=== PATIENT | female | born 1985 | race Caucasian/White ===

== ENCOUNTER 2017-05-26 13:59 | Inpatient (IN) | payer BC ==
[2017-05-26] MEDS ORDERED: NS 0.9% 1000 ML*IV.FLUID IV ONE (15:32)
[2017-05-26] MEDS ORDERED: Clindamycin 900 MG IVPREMIX(* 900 MG/50 ML SDV IV ONE (15:33)
[2017-05-26] MEDS ORDERED: Gentamicin ADULT (*) 40 MG/ML VIAL IVPB ONE (15:34)
[2017-05-26] MEDS ORDERED: Ondansetron INJ* 2 MG/ML VIAL IV ONE (15:34)
[2017-05-26] MEDS ORDERED: Ketorolac INJ* 30 MG/ML 1 ML VIAL IV ONE (15:34)
[2017-05-26] MEDS ORDERED: Acetaminophen TAB* 325 MG PO ONE (15:53)
[2017-05-26 16:08] LABS: ABS Basophils 0 10^3/ul (0-0.2); ABS Eosinophils 0 10^3/ul (0-0.6); ABS Lymphocytes 1.5 10^3/ul (1.0-4.8); ABS Monocytes 0.9 10^3/ul (0-0.8); ABS Neutrophils 9.4 10^3/ul (1.5-7.7); ABS Nucleated RBC 0 10^3/ul; Eosinophil % 0.3 % (0-6); Hematocrit 39 % (35-47); Hemoglobin 13.4 g/dl (12.0-16.0); Lymphocyte % 13.1 % (25-47); Mean Corpuscular HGB Conc 34 g/dl (31-36); Mean Corpuscular Hemoglobin 29 pg (27-31); Mean Corpuscular Volume 86 fL (80-97); Mean Platelet Volume 7 um3 (7.4-10.4); Nucleated Red Blood Cells % 0.1; Platelet Count 238 10^3/ul (150-450); Red Blood Count 4.59 10^6/ul (4.0-5.4); Red Cell Distribution Width 13 % (10.5-15); White Blood Count 11.8 10^3/ul (3.5-10.8)
[2017-05-26 16:18] LABS: INR 1.05 (0.77-1.02)
[2017-05-26 16:30] LABS: EGFR Non-African American 74.5 (>60)
--- NOTE | 2017-05-26 16:43 | RAD ---
INDICATION: RIGHT lower quadrant, flank, pelvic pain. Fever. 3 weeks . COMPARISON: November 10, 2015 pelvic ultrasound. TECHNIQUE: Multidetector CT images were obtained from the lung bases to the ischial tuberosities. Evaluation of the viscera is limited without IV contrast. Multiplanar reformation. REPORT: Unremarkable visualized inferior thorax. Unremarkable unenhanced liver, gallbladder, pancreas, spleen. Negative for CT abnormality of the upper GI or small bowel. Medially extending appendix is top normal in size measuring up to 6 mm diameter is without compelling inflammatory change. The appendix is most conspicuous on coronal reformatted images 35-38. Unremarkable colon. Trace free fluid at the pelvis. Negative for free air or hernias. Normal adrenal glands. Negative for urolithiasis or hydronephrosis. Unremarkable urinary bladder. Enlarged uterus with approximate 6 cm RIGHT dorsal uterine body fibroid increased from approximate 5 cm on the November 10, 2015 ultrasound. Unremarkable adnexal regions. Negative for lymphadenopathy. Normal diameter abdominal aorta and iliac arteries. Physiologic partial distention of the IVC. Negative for suspicious osseous lesions. IMPRESSION: 1. Top normal appendix diameter without compelling inflammatory change. Correlate with clinical assessment. 2. Negative for obstructive uropathy. 3. Enlarged uterus with approximate 6 cm RIGHT dorsal uterine body fibroid increased from approximate 5 cm on the November 10, 2015 ultrasound.
[2017-05-26] MEDS ORDERED: Gentamicin ADULT (*) 80 MG in NS 0.9% 100 ML* 100 ML IVPB ONE (17:00)
[2017-05-26 18:19] LABS: Urine Appearance Cloudy; Urine Blood 1+ (Negative); Urine Color Yellow; Urine Ketones Negative (Negative); Urine Protein Negative (Negative); Urine Specific Gravity 1.008 (1.010-1.030); Urine Urobilinogen Negative (Negative)
--- NOTE | 2017-05-26 18:21 | RAD ---
Indication: Generalized abdominal pain and fever 3 weeks . Known uterine fibroid. Comparison: Abdomen CT of the same date and November 10, 2015 ultrasound. Technique: Transabdominal pelvic ultrasound. Report: 11.9 x 5.2 x 8.1 cm anteverted uterus with 2.5 mm endometrium. Negative for fluid or findings of retained products of conception. Posterior midline to RIGHT para midline uterine body myometrial to subserosal fibroid measuring up to 6.2 x 4.4 x 5.1 cm enlarged from 4.3 x 4.0 x 5.2 cm on the November 10, 2015 exam. 4.1 x 3.1 x 1.8 cm RIGHT ovary with documented vascular flow is remarkable for small follicles only. 3.2 x 2.3 x 1.9 cm LEFT ovary with documented vascular flow is remarkable for small follicles only. No free pelvic fluid evident. IMPRESSION: 1. No evidence for retained products of conception. 2. Interval enlargement of solitary uterine fibroid measuring up to 6.2 x 4.4 x 5.1 cm compared with 4.3 x 4.0 x 5.2 cm on the 2015 exam.
[2017-05-26] MEDS ORDERED: Gentamicin ADULT per pharmacy 1 NOTE MISC FOLLOW UP PRN (19:48)
[2017-05-26] MEDS ORDERED: Ondansetron INJ* 2 MG/ML VIAL IV PRN (19:51)
[2017-05-26] MEDS ORDERED: Clindamycin 900 MG IVPREMIX(* 900 MG/50 ML SDV IV SCH ×2 (20:00→22:00)
--- NOTE | 2017-05-26 20:07 | ED ---
Mingo Arthur Thomas, scribed for Clint Jain MD on 05/26/17 at 1651 . Abdominal Pain/Female - HPI Summary HPI Summary: The patient is a 31 year old female who is 3 weeks post-. Four days ago, the patient began to develop lower abdominal and pelvic pain. The pain is intermittent and is described as dull. The pain radiates to her right flank. Today, the patient woke up with nausea, dizziness, headache, and a fever at 102. She notes a stinging sensation when she urinates. She has been taking Motrin and Tylenol. She denies vaginal discharge. She stopped bleeding about 1.5 weeks ago. - History of Current Complaint Chief Complaint: EDFlankPain Stated Complaint: FEVER,RT FLANK PAIN Time Seen by Provider: 05/26/17 14:56 Hx Obtained From: Patient Onset/Duration: Lasting Days - 4, Still Present Timing: Intermittent Episode Lasting Severity Currently: Moderate Pain Intensity: 5 Pain Scale Used: 0-10 Numeric Location: Other - Lower abd, pelvic Radiates to: Flank - right Character: Dull Aggravating Factor(s): Nothing Alleviating Factor(s): Nothing Associated Signs and Symptoms: Positive: Other: - Abd pain, pelvis, nausea, dizziness, headache, fever, dysuria; NEGATIVE: vaginal discharge Allergies/Adverse Reactions: Allergies Allergy/AdvReac Type Severity Reaction Status Date / Time hydrocodone [From Vicodin] Allergy Anaphylatic Verified 05/26/17 15:11 Shock prochlorperazine Allergy Anaphylatic Verified 05/26/17 15:11 [From Compazine] Shock Home Medications: Home Medications PARoxetine HCL TAB* [Paxil TAB*] 20 mg PO BID 05/26/17 [History Confirmed ] Pnv No.95/Ferrous Fum/Folic AC [ Vitamin & Minera 28-0.8 mg] 1 tab PO DAILY 05/26/17 [History Confirmed 05/26/17] PMH/Surg Hx/FS Hx/Imm Hx Sensory History: Denies: Hx Legally Blind EENT History: Denies: Hx Deafness Infectious Disease History: No Infectious Disease History: Denies: Traveled Outside the [place] in Last 30 Days - Family History Known Family History: Negative: Respiratory Disease - Social History Alcohol Use: None Substance Use Type: Reports: None Smoking Status (MU): Never Smoked Tobacco Review of Systems Positive: Fever Positive: Abdominal Pain, Nausea Positive: dysuria, other - Pelvic pain. Negative: discharge Neurological: Other - Dizziness Positive: Headache All Other Systems Reviewed And Are Negative: Yes Physical Exam - Summary Physical Exam Summary: General: mildly to moderate ill-appearing, no pain distress Skin: warm, color reflects adequate perfusion, dry Head: normal Eyes: EOMI, KATHY ENT: normal Neck: supple, nontender Respiratory: CTA, breath sounds present Cardiovascular: tachycardia, regular rhythm Abdomen: Soft. She is tender to the suprapubic region, RLQ, and epigastrium. She is most tender to the epigastrium. There is no flank tenderness. Bowel: present Musculoskeletal: normal, strength/ROM intact Neurological: normal, sensory/motor intact, A&O x3 Psychological: affect/mood appropriate Triage Information Reviewed: Yes Vital Signs On Initial Exam: Initial Vitals Temp Pulse Resp BP Pulse Ox 104.5 F 124 24 127/90 100 05/26/17 15:11 05/26/17 15:11 05/26/17 15:11 05/26/17 15:11 05/26/17 15:11 Vital Signs Reviewed: Yes Diagnostics - Vital Signs Vital Signs Temp Pulse Resp BP Pulse Ox 05/26/17 16:25 96 05/26/17 16:00 116 98 05/26/17 15:58 110 97 05/26/17 15:11 104.5 F 124 24 127/90 100 - Laboratory Lab Results: Lab Results 05/26/17 05/26/17 05/26/17 Range/Units 15:46 15:46 15:46 WBC 11.8 H (3.5-10.8) 10^3/ul RBC 4.59 (4.0-5.4) 10^6/ul Hgb 13.4 (12.0-16.0) g/dl Hct 39 (35-47) % MCV 86 (80-97) fL MCH 29 (27-31) pg MCHC 34 (31-36) g/dl RDW 13 (10.5-15) % Plt Count 238 (150-450) 10^3/ul MPV 7 L (7.4-10.4) um3 Neut % (Auto) 79.2 (38-83) % Lymph % (Auto) 13.1 L (25-47) % [place] % (Auto) 7.3 H (0-7) % Eos % (Auto) 0.3 (0-6) % Baso % (Auto) 0.1 (0-2) % Absolute Neuts (auto) 9.4 H (1.5-7.7) 10^3/ul Absolute Lymphs (auto) 1.5 (1.0-4.8) 10^3/ul Absolute Monos (auto) 0.9 H (0-0.8) 10^3/ul Absolute Eos (auto) 0 (0-0.6) 10^3/ul Absolute Basos (auto) 0 (0-0.2) 10^3/ul Absolute Nucleated RBC 0 10^3/ul Nucleated RBC % 0.1 INR (Anticoag Therapy) 1.05 H (0.77-1.02) APTT 32.5 (26.0-36.3) seconds Sodium 137 (133-145) mmol/L Potassium 3.8 (3.5-5.0) mmol/L Chloride 101 (101-111) mmol/L Carbon Dioxide 28 (22-32) mmol/L Anion Gap 8 (2-11) mmol/L BUN 11 (6-24) mg/dL Creatinine 0.88 (0.51-0.95) mg/dL Est GFR ( Amer) 95.8 (>60) Est GFR (Non-Af Amer) 74.5 (>60) BUN/Creatinine Ratio 12.5 (8-20) Glucose 89 (70-100) mg/dL Lactic Acid (0.5-2.0) mmol/L Calcium 9.6 (8.6-10.3) mg/dL Total Bilirubin 0.40 (0.2-1.0) mg/dL AST 14 (13-39) U/L ALT 13 (7-52) U/L Alkaline Phosphatase 97 (34-104) U/L Troponin I 0.00 (<0.04) ng/mL C-Reactive Protein 65.51 H (< 5.00) mg/L Total Protein 7.4 (6.4-8.9) g/dL Albumin 4.3 (3.2-5.2) g/dL Globulin 3.1 (2-4) g/dL Albumin/Globulin Ratio 1.4 (1-3) Influenza A (Rapid) (Negative) Influenza B (Rapid) (Negative) 05/26/17 05/26/17 Range/Units 15:46 16:02 WBC (3.5-10.8) 10^3/ul RBC (4.0-5.4) 10^6/ul Hgb (12.0-16.0) g/dl Hct (35-47) % MCV (80-97) fL MCH (27-31) pg MCHC (31-36) g/dl RDW (10.5-15) % Plt Count (150-450) 10^3/ul MPV (7.4-10.4) um3 Neut % (Auto) (38-83) % Lymph % (Auto) (25-47) % [place] % (Auto) (0-7) % Eos % (Auto) (0-6) % Baso % (Auto) (0-2) % Absolute Neuts (auto) (1.5-7.7) 10^3/ul Absolute Lymphs (auto) (1.0-4.8) 10^3/ul Absolute Monos (auto) (0-0.8) 10^3/ul Absolute Eos (auto) (0-0.6) 10^3/ul Absolute Basos (auto) (0-0.2) 10^3/ul Absolute Nucleated RBC 10^3/ul Nucleated RBC % INR (Anticoag Therapy) (0.77-1.02) APTT (26.0-36.3) seconds Sodium (133-145) mmol/L Potassium (3.5-5.0) mmol/L Chloride (101-111) mmol/L Carbon Dioxide (22-32) mmol/L Anion Gap (2-11) mmol/L BUN (6-24) mg/dL Creatinine (0.51-0.95) mg/dL Est GFR ( Amer) (>60) Est GFR (Non-Af Amer) (>60) BUN/Creatinine Ratio (8-20) Glucose (70-100) mg/dL Lactic Acid 1.6 (0.5-2.0) mmol/L Calcium (8.6-10.3) mg/dL Total Bilirubin (0.2-1.0) mg/dL AST (13-39) U/L ALT (7-52) U/L Alkaline Phosphatase (34-104) U/L Troponin I (<0.04) ng/mL C-Reactive Protein (< 5.00) mg/L Total Protein (6.4-8.9) g/dL Albumin (3.2-5.2) g/dL Globulin (2-4) g/dL Albumin/Globulin Ratio (1-3) Influenza A (Rapid) Negative (Negative) Influenza B (Rapid) Negative (Negative) Result Diagrams: 05/26/17 15:46 05/26/17 15:46 Lab Statement: Any lab studies that have been ordered have been reviewed, and results considered in the medical decision making process. - CT CT Abd/Pel CT Interpretation: No Acute Changes - 1. Top normal appendix diameter without compelling inflammatory change. Correlate with clinical assessment. 2. Negative for obstructive uropathy. 3. Enlarged uterus with approximate 6 cm RIGHT dorsal uterine body fibroid increased from approximate 5 cm on the November 10, [address] Jain has reviewed this report. CT Interpretation Completed By: Radiologist - Additional Comments Diagnostic Additional Comments: Ultrasound Pelvis. Interpreted by radiologist. IMPRESSION: 1. No evidence for retained products of conception. 2. Interval enlargement of solitary uterine fibroid measuring up to 6.2 x 4.4 x 5.1 cm compared with 4.3 x 4.0 x 5.2 cm on the [address] Jain has reviewed this report. Abdominal Pain Fem Course/Dx - Course Course Of Treatment: Medications reviewed. Allergies noted. DR VILLASEÑOR SAW PATIENT IN ED. ADMIT FINAL TESTER. NO CRITICAL CARE TIME. - Diagnoses Provider Diagnoses: Endometritis following delivery - Provider Notifications Discussed Care Of Patient With: Michoacano Villaseñor Time Discussed With Above Provider: 19:21 Instructed by Provider To: Admit As Inpatient Discharge - Discharge Plan Condition: Stable Disposition: ADMITTED TO [facility] Referrals: Radha Serrano MD [Primary Care Provider] - The documentation as recorded by the Mingo kauffman Thomas accurately reflects the service I personally performed and the decisions made by , Clint Jain MD.
[2017-05-26] MEDS: Ibuprofen TAB* 600 MG PO PRN (21:03)
[2017-05-26] MEDS: Clindamycin 900 MG IVPREMIX(* 900 MG/50 ML SDV IV SCH (23:23)
[2017-05-27] MEDS: Acetaminophen TAB* 325 MG PO PRN ×3 (00:57→20:16)
[2017-05-27] MEDS: Gentamicin ADULT (*) 120 MG in NS 0.9% 100 ML* 100 ML IVPB SCH ×3 (04:19→20:30)
[2017-05-27] MEDS: Clindamycin 900 MG IVPREMIX(* 900 MG/50 ML SDV IV SCH ×2 (07:38→16:05)
[2017-05-27] MEDS: Ibuprofen TAB* 600 MG PO PRN ×2 (11:44→19:02)
[2017-05-27] MEDS ORDERED: Ondansetron TAB* 4 MG PO PRN (11:50)
[2017-05-27] MEDS: PARoxetine HCL TAB* 20 MG PO SCH ×2 (12:31→20:17)
[2017-05-27 12:34] LABS: ABS Basophils 0 10^3/ul (0-0.2); ABS Eosinophils 0 10^3/ul (0-0.6); ABS Lymphocytes 1.3 10^3/ul (1.0-4.8); ABS Monocytes 1.1 10^3/ul (0-0.8); ABS Neutrophils 11.2 10^3/ul (1.5-7.7); ABS Nucleated RBC 0 10^3/ul; Eosinophil % 0.1 % (0-6); Hematocrit 36 % (35-47); Hemoglobin 12.2 g/dl (12.0-16.0); Lymphocyte % 9.5 % (25-47); Mean Corpuscular HGB Conc 34 g/dl (31-36); Mean Corpuscular Hemoglobin 29 pg (27-31); Mean Corpuscular Volume 87 fL (80-97); Mean Platelet Volume 7 um3 (7.4-10.4); Nucleated Red Blood Cells % 0; Platelet Count 194 10^3/ul (150-450); Red Blood Count 4.15 10^6/ul (4.0-5.4); Red Cell Distribution Width 13 % (10.5-15); White Blood Count 13.6 10^3/ul (3.5-10.8)
--- NOTE | 2017-05-27 13:12 | PN ---
Medicine Progress Note - Date of Service Date of Service: 05/27/17 - Subjective Subjective: Pt notes fevers persist - Objective Objective: Vital Signs 05/26/17 05/26/17 05/26/17 20:13 20:30 20:53 Temperature 98.4 F Pulse Rate 86 87 85 Respiratory 18 Rate Blood Pressure 97/69 94/68 112/66 (mmHg) O2 Sat by Pulse 98 98 100 Oximetry 05/26/17 05/26/17 05/26/17 21:00 21:01 21:11 Temperature 99.7 F 99.4 F Pulse Rate 89 88 Respiratory 18 Rate Blood Pressure 99/60 97/69 (mmHg) O2 Sat by Pulse 99 98 Oximetry 05/26/17 05/26/17 05/26/17 21:31 22:54 23:41 Temperature 98.4 F 100.1 F Pulse Rate 85 91 Respiratory 18 17 18 Rate Blood Pressure 112/66 93/47 (mmHg) O2 Sat by Pulse 100 97 Oximetry 05/27/17 05/27/17 05/27/17 00:54 03:03 06:17 Temperature 101.2 F 100.2 F 98.3 F Pulse Rate 101 Respiratory 22 Rate Blood Pressure 104/55 (mmHg) O2 Sat by Pulse 96 Oximetry 05/27/17 05/27/17 05/27/17 07:30 07:55 07:56 Temperature 101.5 F 101.7 F Pulse Rate 98 Respiratory 16 16 Rate Blood Pressure 98/67 (mmHg) O2 Sat by Pulse 99 99 Oximetry 05/27/17 05/27/17 10:10 11:11 Temperature 100.5 F 102.5 F Pulse Rate 110 Respiratory 16 Rate Blood Pressure 122/73 (mmHg) O2 Sat by Pulse Oximetry Current Medications Acetaminophen (Tylenol Tab*) 975 mg PO Q6H PRN PRN Reason: FEVER Last Admin: 05/27/17 07:37 Dose: 975 mg Clindamycin HCl/Dextrose (Cleocin 900 Mg Ivpremix (*) Sdv) 900 mg in 50 mls @ 100 mls/hr IV 0000,0800,1600 [facility] Last Admin: 05/27/17 07:38 Dose: 100 mls/hr Gentamicin Sulfate 120 mg/ (Sodium Chloride) 103 mls @ 206 mls/hr IVPB Q8H [facility] Last Admin: 05/27/17 12:51 Dose: 206 mls/hr Ampicillin Sodium 2 gm/ Sodium (Chloride) 100 mls @ 200 mls/hr IVPB Q6H [facility] Ibuprofen (Motrin Tab*) 600 mg PO Q6H PRN PRN Reason: PAIN Last Admin: 05/27/17 11:44 Dose: 600 mg Ondansetron HCl (Zofran Tab*) 8 mg PO Q6H PRN PRN Reason: NAUSEA Paroxetine HCl (Paxil Tab*) 20 mg PO BID [facility]RA Last Admin: 05/27/17 12:31 Dose: 20 mg Pharmacy Consult (Gentamicin Adult Per Pharmacy) 1 note FOLLOW UP .GENT PER PHARMACY PRN PRN Reason: PER PROTOCOL Stop: 06/09/17 19:49 Pharmacy Profile Note (Gentamicin Trough Level) 1 note FOLLOW UP 1930 ONE Stop: 05/27/17 19:31 Pharmacy Profile Note (Gentamicin Peak Level*) 1 note FOLLOW UP 2100 ONE Stop: 05/27/17 21:01 Intake & Output 05/25/17 05/26/17 05/27/17 05/28/17 06:59 06:59 06:59 06:59 Intake Total 743 278 Output Total 0 1050 Balance 743 -772 Weight 153 lb Intake: IV Fluids 103 IVPB 143 55 ABX - CLINDAMYCIN 43 ABX - GENTAMYCIN 100 Oral 600 120 Output: Urine 0 1050 ADLs: Meal Record Start: 05/26/17 21: 04 Freq: Status: Active Protocol: Document 05/27/17 10:30 [id number] (Rec: 05/27/17 10:30 [id number]) Intake and Output Start: 05/26/17 21: 04 Freq: DAILY@0600,1400,2200 Status: Active Protocol: Document 05/27/17 06:00 [id number] (Rec: 05/27/17 06:04 [id number] [id number]) Document 05/27/17 06:15 [id number] (Rec: 05/27/17 06:15 [id number] [id number]) Document 05/27/17 07:03 [id number] (Rec: 05/27/17 09:03 [id number] [id number]) Document 05/27/17 11:15 [id number] (Rec: 05/27/17 11:48 [id number] [id number]) Last Finger Stick Glucose Documented by Nursing: General: resting with ice pack on head Uterus: mildly tender to left Perineum:intact no foul drainage Abdomen: no rebound no guarding no HSM Back: no CVA tenderness Extremities: Non tender no edema - Labs Labs: Laboratory Results - last 24 hr 05/27/17 12:15 WBC 13.6 H RBC 4.15 Hgb 12.2 Hct 36 MCV 87 MCH 29 MCHC 34 RDW 13 Plt Count 194 MPV 7 L Neut % (Auto) 82.2 Lymph % (Auto) 9.5 L [place] % (Auto) 8.1 H Eos % (Auto) 0.1 Baso % (Auto) 0.1 Absolute Neuts (auto) 11.2 H Absolute Lymphs (auto) 1.3 Absolute Monos (auto) 1.1 H Absolute Eos (auto) 0 Absolute Basos (auto) 0 Absolute Nucleated RBC 0 Nucleated RBC % 0 - Assessment Assessment: ORLANDO ALEJANDRO is a 31 year old F. Patient's diagnosis is ENDOMETRITIS. Will repeat blood cultures in light of new spike and will broaden coverage with ampicillin gentamicin and clindamycin Repeat CBC done and agree with assessment of endometritis - Plan Plan: Repeat blood culture add on Ampicillin for broader coverage. No evidence of retained POC on pelvic US.
[2017-05-27] MEDS: Ampicillin IV* 2 GM in NS 0.9% 100 ML* 100 ML IVPB SCH ×3 (13:50→23:51)
[2017-05-27] MEDS ORDERED: Gentamicin Trough Level 1 NOTE MISC FOLLOW UP ONE (19:30)
[2017-05-27] MEDS ORDERED: Gentamicin PEAK LEVEL* 1 NOTE MISC FOLLOW UP ONE (21:00)
[2017-05-28] MEDS: Clindamycin 900 MG IVPREMIX(* 900 MG/50 ML SDV IV SCH ×3 (00:32→15:25)
[2017-05-28] MEDS ORDERED: Gentamicin ADULT (*) 80 MG in NS 0.9% 100 ML* 100 ML IVPB SCH ×2 (01:53→04:00)
[2017-05-28] MEDS: Ampicillin IV* 2 GM in NS 0.9% 100 ML* 100 ML IVPB SCH ×4 (05:17→23:20)
[2017-05-28 05:44] LABS: ABS Basophils 0 10^3/ul (0-0.2); ABS Eosinophils 0.1 10^3/ul (0-0.6); ABS Lymphocytes 2.3 10^3/ul (1.0-4.8); ABS Monocytes 1.2 10^3/ul (0-0.8); ABS Neutrophils 8.2 10^3/ul (1.5-7.7); ABS Nucleated RBC 0 10^3/ul; Hematocrit 34 % (35-47); Hemoglobin 11.6 g/dl (12.0-16.0); Lymphocyte % 19.3 % (25-47); Mean Corpuscular HGB Conc 34 g/dl (31-36); Mean Corpuscular Hemoglobin 30 pg (27-31); Mean Corpuscular Volume 87 fL (80-97); Mean Platelet Volume 7 um3 (7.4-10.4); Nucleated Red Blood Cells % 0; Platelet Count 176 10^3/ul (150-450); Red Blood Count 3.89 10^6/ul (4.0-5.4); Red Cell Distribution Width 13 % (10.5-15); White Blood Count 11.8 10^3/ul (3.5-10.8)
[2017-05-28] MEDS: PARoxetine HCL TAB* 20 MG PO SCH ×2 (08:57→21:07)
[2017-05-28] MEDS: Ibuprofen TAB* 600 MG PO PRN ×2 (08:57→19:32)
[2017-05-28] MEDS ORDERED: Gentamicin Trough Level 1 NOTE MISC FOLLOW UP ONE (11:30)
--- NOTE | 2017-05-28 11:54 | PN ---
Progress Note - Progress Note Date of Service: 05/28/17 SOAP: Subjective: Pt is HD#3 for apparent endometritis, delivered nearly 4 wks ago. Had very high temp before she presented (104+). Initially started on Gent/Clinda, but with 102 temp yesterday AM, Amp was added. Pt had a temp of 101.2 at 1928 last night, but none since. Overall, pt reports she is feeling better. When she has fever, she gets very cold and shaky. Motrin helps. Pt recalls that about a week ago, she passed an approx quarter-sized piece of tissue. She has been having some symptoms of pain and low grade fever for about a week before she came in. Objective: Vital Signs: Temp Pulse Resp BP Pulse Ox 99.0 F 80 18 99/55 98 05/28/17 07:33 05/28/17 07:29 05/28/17 08:00 05/28/17 07:29 05/28/17 07:29 Gen: NAD, comfortable Abd soft, minimal TTP, no rebound/guarding Laboratory Last Values WBC 11.8 10^3/ul (3.5-10.8) H 05/28/17 05:16 RBC 3.89 10^6/ul (4.0-5.4) L 05/28/17 05:16 Hgb 11.6 g/dl (12.0-16.0) L 05/28/17 05:16 Hct 34 % (35-47) L 05/28/17 05:16 MCV 87 fL (80-97) 05/28/17 05:16 MCH 30 pg (27-31) 05/28/17 05:16 MCHC 34 g/dl (31-36) 05/28/17 05:16 RDW 13 % (10.5-15) 05/28/17 05:16 Plt Count 176 10^3/ul (150-450) 05/28/17 05:16 MPV 7 um3 (7.4-10.4) L 05/28/17 05:16 Neut % (Auto) 69.8 % (38-83) 05/28/17 05:16 Lymph % (Auto) 19.3 % (25-47) L 05/28/17 05:16 [place] % (Auto) 9.8 % (0-7) H 05/28/17 05:16 Eos % (Auto) 1.0 % (0-6) 05/28/17 05:16 Baso % (Auto) 0.1 % (0-2) 05/28/17 05:16 Absolute Neuts (auto) 8.2 10^3/ul (1.5-7.7) H 05/28/17 05:16 Absolute Lymphs (auto) 2.3 10^3/ul (1.0-4.8) 05/28/17 05:16 Absolute Monos (auto) 1.2 10^3/ul (0-0.8) H 05/28/17 05:16 Absolute Eos (auto) 0.1 10^3/ul (0-0.6) 05/28/17 05:16 Absolute Basos (auto) 0 10^3/ul (0-0.2) 05/28/17 05:16 Absolute Nucleated RBC 0 10^3/ul 05/28/17 05:16 Nucleated RBC % 0 05/28/17 05:16 INR (Anticoag Therapy) 1.05 (0.77-1.02) H 05/26/17 15:46 APTT 32.5 seconds (26.0-36.3) 05/26/17 15:46 Sodium 139 mmol/L (133-145) 05/28/17 05:16 Potassium 3.6 mmol/L (3.5-5.0) 05/28/17 05:16 Chloride 109 mmol/L (101-111) 05/28/17 05:16 Carbon Dioxide 26 mmol/L (22-32) 05/28/17 05:16 Anion Gap 4 mmol/L (2-11) 05/28/17 05:16 BUN 8 mg/dL (6-24) 05/28/17 05:16 Creatinine 0.70 mg/dL (0.51-0.95) 05/28/17 05:16 Est GFR ( Amer) 124.7 (>60) 05/28/17 05:16 Est GFR (Non-Af Amer) 97.0 (>60) 05/28/17 05:16 BUN/Creatinine Ratio 11.4 (8-20) 05/28/17 05:16 Glucose 121 mg/dL (70-100) H 05/28/17 05:16 Lactic Acid 1.3 mmol/L (0.5-2.0) 05/26/17 19:20 Calcium 8.8 mg/dL (8.6-10.3) 05/28/17 05:16 Total Bilirubin 0.40 mg/dL (0.2-1.0) 05/26/17 15:46 AST 14 U/L (13-39) 05/26/17 15:46 ALT 13 U/L (7-52) 05/26/17 15:46 Alkaline Phosphatase 97 U/L (34-104) 05/26/17 15:46 Troponin I 0.00 ng/mL (<0.04) 05/26/17 15:46 C-Reactive Protein 65.51 mg/L (< 5.00) H 05/26/17 15:46 Total Protein 7.4 g/dL (6.4-8.9) 05/26/17 15:46 Albumin 4.3 g/dL (3.2-5.2) 05/26/17 15:46 Globulin 3.1 g/dL (2-4) 05/26/17 15:46 Albumin/Globulin Ratio 1.4 (1-3) 05/26/17 15:46 Procalcitonin < 0.1 ng/mL (<0.6) 05/26/17 15:46 Urine Color Yellow 05/26/17 18:02 Urine Appearance Cloudy 05/26/17 18:02 Urine pH 6.0 (5-9) 05/26/17 18:02 Ur Specific [place] 1.008 (1.010-1.030) L 05/26/17 18:02 Urine Protein Negative (Negative) 05/26/17 18:02 Urine Ketones Negative (Negative) 05/26/17 18:02 Urine Blood 1+ (Negative) A 05/26/17 18:02 Urine Nitrate Negative (Negative) 05/26/17 18:02 Urine Bilirubin Negative (Negative) 05/26/17 18:02 Urine Urobilinogen Negative (Negative) 05/26/17 18:02 Ur Leukocyte Esterase 3+ (Negative) A 05/26/17 18:02 Urine WBC (Auto) 3+(>20/hpf) (Absent) A 05/26/17 18:02 Urine RBC (Auto) Trace(0-2/hpf) (Absent) 05/26/17 18:02 Ur Squamous Epith Cells Present (Absent) A 05/26/17 18:02 Urine Bacteria 1+ (Absent) A 05/26/17 18:02 Urine Glucose Negative (Negative) 05/26/17 18:02 Gentamicin Peak 7.9 mcg/mL 05/27/17 21:40 Gentamicin Trough 0.9 mcg/mL 05/27/17 19:25 Influenza A (Rapid) Negative (Negative) 05/26/17 16:02 Influenza B (Rapid) Negative (Negative) 05/26/17 16:02 Assessment: HD#3 with likely endometritis, possibly related to some retained tissue which passed prior to admission. Appears to be improving on triple Abx, so will continue the course. Plan: Switching Gent to 24hr dosing to avoid peak/trough issue. Otherwise, continue IV abx until 24-48 hrs afebrile. Pt understands plan. If fevers persist, will need to consider alternate causes such as SPT.
[2017-05-28] MEDS: Gentamicin ADULT (*) 250 MG in NS 0.9% 100 ML* 100 ML IVPB SCH (13:43)
[2017-05-28] MEDS: Acetaminophen TAB* 325 MG PO PRN (21:07)
[2017-05-29] MEDS: Clindamycin 900 MG IVPREMIX(* 900 MG/50 ML SDV IV SCH ×3 (00:13→16:22)
[2017-05-29] MEDS: Ampicillin IV* 2 GM in NS 0.9% 100 ML* 100 ML IVPB SCH ×3 (05:44→18:22)
[2017-05-29] MEDS: PARoxetine HCL TAB* 20 MG PO SCH ×2 (08:29→19:53)
--- NOTE | 2017-05-29 10:59 | PN ---
Progress Note - Progress Note Date of Service: 05/29/17 SOAP: Subjective: Pt HD#4, about 4 weeks PP s/p . Now on day 3 of amp/gent/clinda for suspected endometritis. Despite abx, she has continued to spike fevers every evening (last night 101.9). Pt reports she is feeling much better, but can tell when she is having the fever. Even chills during the fever were better last night than previous. Objective: Vital Signs: Temp Pulse Resp BP Pulse Ox 98.4 F 72 18 116/75 99 05/29/17 07:40 05/29/17 07:40 05/29/17 08:30 05/29/17 07:40 05/29/17 07:40 Gen: NAD, comfortable, ambulating Abd soft, completely nontender, no rebound/guarding. Uterus nontender. Assessment: febrile illness, being treated with triple abx for suspected endometritis but with persistent once-daily temp spikes. This is likely still just recovery from the infection, but I will start treatment today for poss septic pelvic thrombophlebitis/pelvic thrombosis. Plan: Lovenox 60mg (1mg/kg) SQ Q12hrs CT abd/pelvis with IV contrast. Discussed with radiologist so he is aware of the reason for study. If evidence of thrombosis, pt would need to continue lovenox for 2 wks after discharge. Otherwise, will plan to d/c both abx and lovenox after 48 hrs afebrile.
[2017-05-29] MEDS: Enoxaparin(*) 60 MG/0.6 ML SYR SUBCUT SCH ×2 (12:05→23:06)
[2017-05-29] MEDS: predniSONE TAB* 50 MG PO SCH ×3 (12:05→23:05)
[2017-05-29] MEDS: Gentamicin ADULT (*) 250 MG in NS 0.9% 100 ML* 100 ML IVPB SCH (12:13)
[2017-05-29] MEDS ORDERED: Gentamicin PEAK LEVEL* 1 NOTE MISC FOLLOW UP SCH (13:00)
[2017-05-29 14:52] LABS: EGFR Non-African American 79.7 (>60)
[2017-05-29] MEDS ORDERED: Iohexol 300* (CONTRAST) 10 ML SDV IV ONE (16:37)
[2017-05-29] MEDS ORDERED: diPHENhydraMINE PO* 50 MG PO ONE (23:00)
[2017-05-30] MEDS: Ampicillin IV* 2 GM in NS 0.9% 100 ML* 100 ML IVPB SCH ×5 (00:37→23:22)
[2017-05-30] MEDS: Clindamycin 900 MG IVPREMIX(* 900 MG/50 ML SDV IV SCH ×3 (01:18→16:36)
[2017-05-30] MEDS: PARoxetine HCL TAB* 20 MG PO SCH ×2 (07:19→19:43)
--- NOTE | 2017-05-30 07:48 | RAD ---
CLINICAL HISTORY: Persistent fever , evaluate pelvic thrombus COMPARISON: May 26, 2017 TECHNIQUE: Multiple contiguous axial CT scans were obtained of the abdomen and pelvis after the administration of intravenous contrast. Coronal and sagittal multiplanar reformations are submitted for review. Oral contrast was not administered. Delayed images were obtained through the abdomen and pelvis. FINDINGS: LUNG BASES: There are trace bilateral pleural effusions. LIVER: The liver is normal in shape, size, contour, and attenuation. BILE DUCTS: There is no intrahepatic or extrahepatic biliary dilatation. GALLBLADDER: The gallbladder is normal, without pericholecystic inflammatory change. PANCREAS: The pancreas is normal, without mass or ductal dilatation. SPLEEN: Normal in size and appearance. UPPER GI TRACT: Evaluation of the gastrointestinal tract is limited by incomplete gastric distention. The upper GI tract is unremarkable. SMALL BOWEL AND MESENTERY: The small bowel is normal in contour, course, and caliber. There is no obstruction or dilatation. COLON: The colon is normal in contour, course, caliber. There is no pericolonic inflammatory change. There is a large amount of stool throughout the colon. The appendix is not clearly visualized on the current examination. ADRENALS: Normal bilaterally. KIDNEYS: There is a simple cyst of the midpole of the left kidney. There is no hydronephrosis or nephrolithiasis. BLADDER: The bladder is smooth in contour. PELVIC ORGANS: The uterus is enlarged and fibroid. AORTA: The aorta is normal. IVC: The infrarenal IVC and pelvic veins are not well opacified with contrast which limits evaluation of pelvic vein thrombosis. LYMPH NODES: There is no lymphadenopathy by size criteria. ABDOMINAL WALL: There is no evidence for abdominal wall hernia. BONES AND SOFT TISSUES: Unremarkable OTHER: There is a trace amount of free fluid within the pelvis. IMPRESSION: 1. FIBROID UTERUS. 2. TRACE FREE FLUID WITHIN THE PELVIS. 3. TRACE BILATERAL PLEURAL EFFUSIONS. 4. EVALUATION OF THE INFRARENAL IVC AND THE PELVIC VEINS IS LIMITED BY POOR CONTRAST OPACIFICATION
[2017-05-30] MEDS: Enoxaparin(*) 60 MG/0.6 ML SYR SUBCUT SCH ×2 (13:40→23:22)
[2017-05-30] MEDS: Gentamicin ADULT (*) 250 MG in NS 0.9% 100 ML* 100 ML IVPB SCH (14:19)
[2017-05-31] MEDS: Clindamycin 900 MG IVPREMIX(* 900 MG/50 ML SDV IV SCH ×2 (00:09→08:03)
[2017-05-31] MEDS: Ampicillin IV* 2 GM in NS 0.9% 100 ML* 100 ML IVPB SCH (05:22)
[2017-05-31 07:38] VITALS: BP 95/60
[2017-05-31] MEDS ORDERED: Amoxicillin/Clavulanate TAB* 875 MG PO SCH (09:00)
[2017-05-31] MEDS: PARoxetine HCL TAB* 20 MG PO SCH (09:14)
== END 2017-05-31 09:55 | disposition home or self-care (01) | DRG 561 ==
LOC: ED 13:59 → SSU 19:45 → OBSVTOIN 05-27 15:00
PROVIDERS: ADMIT Obstetrics & Gynecology; ATTEND Obstetrics & Gynecology
DX: O86.12 Endometritis following delivery (principal); D25.9 Leiomyoma of uterus, unspecified; J45.909 Unspecified asthma, uncomplicated; F41.8 Other specified anxiety disorders; Z79.899 Other long term (current) drug therapy; Z88.5 Allergy status to narcotic agent; Z88.8 Allergy status to other drugs, medicaments and biological substances
CPT/HCPCS: 36415; 74176; 74177; 76856; 80048; 80053; 80170; 81003; 81015; 82565; 83605; 84145; 84484; 84520; 85025; 85610; 85730; 86140; 87040; 87086; 87502; 99284; A9270-GY; J0290; J1580; J1650; J1885; J2405; J7512; Q9967

== ENCOUNTER 2017-06-18 09:41 | Emergency (ER) | payer BC ==
[2017-06-18] MEDS ORDERED: NS 0.9% 1000 ML* 1,000 ML IV ONE (10:18)
[2017-06-18] MEDS ORDERED: Ondansetron INJ* 2 MG/ML VIAL IV ONE (10:18)
[2017-06-18] MEDS ORDERED: Ondansetron INJ* 2 MG/ML VIAL ONE (10:23)
[2017-06-18 11:07] LABS: ABS Basophils 0 10^3/ul (0-0.2); ABS Eosinophils 0.1 10^3/ul (0-0.6); ABS Lymphocytes 1.9 10^3/ul (1.0-4.8); ABS Monocytes 0.9 10^3/ul (0-0.8); ABS Neutrophils 6.4 10^3/ul (1.5-7.7); ABS Nucleated RBC 0 10^3/ul; Eosinophil % 0.8 % (0-6); Hematocrit 34 % (35-47); Hemoglobin 11.6 g/dl (12.0-16.0); Lymphocyte % 20.4 % (25-47); Mean Corpuscular HGB Conc 34 g/dl (31-36); Mean Corpuscular Hemoglobin 29 pg (27-31); Mean Corpuscular Volume 85 fL (80-97); Nucleated Red Blood Cells % 0; Platelet Count 222 10^3/ul (150-450); Red Blood Count 3.97 10^6/ul (4.0-5.4); Red Cell Distribution Width 14 % (10.5-15); White Blood Count 9.3 10^3/ul (3.5-10.8)
[2017-06-18 11:20] LABS: INR 1.06 (0.77-1.02)
[2017-06-18 11:22] LABS: EGFR Non-African American 71.6 (>60)
[2017-06-18] MEDS ORDERED: Iohexol 300* (CONTRAST) 10 ML SDV IV ONE (12:02)
--- NOTE | 2017-06-18 12:58 | RAD ---
CLINICAL HISTORY: Diffuse abdominal pain COMPARISON: May 30, 2017 TECHNIQUE: Multiple contiguous axial CT scans were obtained of the abdomen and pelvis after the administration of intravenous contrast. Coronal and sagittal multiplanar reformations are submitted for review. Oral contrast was administered. Delayed images were obtained through the abdomen and pelvis. FINDINGS: LUNG BASES: The lung bases are clear. LIVER: The liver is normal in shape, size, contour, and attenuation. BILE DUCTS: There is no intrahepatic or extrahepatic biliary dilatation. GALLBLADDER: The gallbladder is normal, without pericholecystic inflammatory change. PANCREAS: The pancreas is normal, without mass or ductal dilatation. SPLEEN: Normal in size and appearance. UPPER GI TRACT: Evaluation of the gastrointestinal tract is limited by incomplete gastric distention. The upper GI tract is unremarkable. SMALL BOWEL AND MESENTERY: The small bowel is normal in contour, course, and caliber. There is no obstruction or dilatation. COLON: There is mild mucosal thickening of the cecum and ascending colon. There is a tubular, vermiform, hollow viscus that is blind ending, and originates from the cecum, consistent with a normal appendix. There is no periappendiceal inflammatory change. This is best seen on coronal image 42. ADRENALS: Normal bilaterally. KIDNEYS: The kidneys are normal in shape, size, contour, and axis. There is no hydronephrosis or nephrolithiasis. BLADDER: The bladder is smooth in contour. PELVIC ORGANS: The uterus is fibroid. AORTA: The aorta is normal. IVC: Unremarkable LYMPH NODES: There is no lymphadenopathy by size criteria. ABDOMINAL WALL: There is no evidence for abdominal wall hernia. BONES AND SOFT TISSUES: Unremarkable OTHER: None IMPRESSION: 1. MILD MUCOSAL THICKENING OF THE PROXIMAL COLON WHICH MAY SUGGEST COLITIS IN THE APPROPRIATE CLINICAL SETTING. 2. NORMAL APPENDIX. 3. FIBROID UTERUS.
[2017-06-18] MEDS ORDERED: metroNIDAZOLE TAB* 250 MG PO ONE (15:43)
[2017-06-18] MEDS ORDERED: Vancomycin CAP* 125 MG CAP PO ONE (15:46)
[2017-06-18 16:09] VITALS: BP 121/73
--- NOTE | 2017-06-18 19:02 | ED ---
Steve Arthur Elizabeth, scribed for Clarke Gama on 06/18/17 at 1027 . Abdominal Pain/Female - HPI Summary HPI Summary: The patient is a 31 year old female complaining of cramping abdominal pain that began 4 days ago. The patient additionally complains of watery diarrhea and nausea. The patient notes she had a fever 3-4 days ago. She says that eating aggravates the pain. The patient denies hematuria, vaginal discharge, and melena. The patient was admitted 3 weeks ago for an infection and finished PO antibiotics 5 days ago. She is 7 weeks post-. - History of Current Complaint Chief Complaint: EDAbdPain Stated Complaint: POSSIBLE INFECTION/ABD PAIN Time Seen by Provider: 06/18/17 10:09 Hx Obtained From: Patient Onset/Duration: Lasting Days, Still Present, Resolved - Began 4 days ago Timing: Constant Severity Initially: Mild Severity Currently: Mild Pain Intensity: 4 Pain Scale Used: 0-10 Numeric Location: Diffuse Character: Cramping Aggravating Factor(s): Food Alleviating Factor(s): Nothing Associated Signs and Symptoms: Positive: Fever - fever 3-4 days ago, Nausea, Diarrhea. Negative: Blood in Stool, Vaginal Discharge Allergies/Adverse Reactions: Allergies Allergy/AdvReac Type Severity Reaction Status Date / Time hydrocodone [From Vicodin] Allergy Anaphylatic Verified 05/26/17 15:11 Shock prochlorperazine Allergy Anaphylatic Verified 05/26/17 15:11 [From Compazine] Shock PMH/Surg Hx/FS Hx/Imm Hx Endocrine/Hematology History: Denies: Hx Diabetes Respiratory History: Reports: Hx Asthma Sensory History: Denies: Hx Contacts or Glasses, Hx Legally Blind, Hx Deafness, Hx Hearing Aid Opthamlomology History: Denies: Hx Contacts or Glasses, Hx Legally Blind Psychiatric History: Reports: Hx Anxiety Infectious Disease History: Yes Infectious Disease History: Denies: Traveled Outside the [place] in Last 30 Days - Family History Known Family History: Negative: Respiratory Disease - Social History Alcohol Use: None Substance Use Type: Reports: None Smoking Status (MU): Never Smoked Tobacco Review of Systems Negative: Fever Positive: Abdominal Pain, Diarrhea, Nausea Negative: discharge, hematuria All Other Systems Reviewed And Are Negative: Yes Physical Exam - Summary Physical Exam Summary: Appearance: Well appearing, no pain distress Skin: warm, dry, reflects adequate perfusion Head/face: normal Eyes: EOMI, KATHY ENT: normal Neck: supple, non-tender Respiratory: CTA, breath sounds present Cardiovascular: RRR, pulses symmetrical Abdomen: diffuse tenderness, soft Bowel: present Musculoskeletal: normal, strength/ROM intact Neuro: normal, sensory motor intact, A&Ox3 Triage Information Reviewed: Yes Vital Signs On Initial Exam: Initial Vitals Temp Pulse Resp BP Pulse Ox 97.6 F 98 16 109/73 99 06/18/17 09:46 06/18/17 09:46 06/18/17 09:46 06/18/17 09:46 06/18/17 09:46 Vital Signs Reviewed: Yes Diagnostics - Vital Signs Vital Signs Temp Pulse Resp BP Pulse Ox 06/18/17 10:14 78 96 06/18/17 09:46 97.6 F 98 16 109/73 99 - Laboratory Lab Results: Lab Results 06/18/17 06/18/17 06/18/17 Range/Units 10:56 10:56 10:56 WBC 9.3 (3.5-10.8) 10^3/ul RBC 3.97 L (4.0-5.4) 10^6/ul Hgb 11.6 L (12.0-16.0) g/dl Hct 34 L (35-47) % MCV 85 (80-97) fL MCH 29 (27-31) pg MCHC 34 (31-36) g/dl RDW 14 (10.5-15) % Plt Count 222 (150-450) 10^3/ul MPV 7.0 L (7.4-10.4) um3 Neut % (Auto) 68.7 (38-83) % Lymph % (Auto) 20.4 L (25-47) % [place] % (Auto) 9.9 H (0-7) % Eos % (Auto) 0.8 (0-6) % Baso % (Auto) 0.2 (0-2) % Absolute Neuts (auto) 6.4 (1.5-7.7) 10^3/ul Absolute Lymphs (auto) 1.9 (1.0-4.8) 10^3/ul Absolute Monos (auto) 0.9 H (0-0.8) 10^3/ul Absolute Eos (auto) 0.1 (0-0.6) 10^3/ul Absolute Basos (auto) 0 (0-0.2) 10^3/ul Absolute Nucleated RBC 0 10^3/ul Nucleated RBC % 0 INR (Anticoag Therapy) 1.06 H (0.77-1.02) APTT 32.7 (26.0-36.3) seconds Sodium 134 (133-145) mmol/L Potassium 3.4 L (3.5-5.0) mmol/L Chloride 103 (101-111) mmol/L Carbon Dioxide 24 (22-32) mmol/L Anion Gap 7 (2-11) mmol/L BUN 7 (6-24) mg/dL Creatinine 0.91 (0.51-0.95) mg/dL Est GFR ( Amer) 92.1 (>60) Est GFR (Non-Af Amer) 71.6 (>60) BUN/Creatinine Ratio 7.7 L (8-20) Glucose 79 (70-100) mg/dL Lactic Acid (0.5-2.0) mmol/L Calcium 9.2 (8.6-10.3) mg/dL Total Bilirubin 0.60 (0.2-1.0) mg/dL AST 12 L (13-39) U/L ALT 9 (7-52) U/L Alkaline Phosphatase 78 (34-104) U/L C-Reactive Protein 107.98 H (< 5.00) mg/L Total Protein 6.5 (6.4-8.9) g/dL Albumin 3.8 (3.2-5.2) g/dL Globulin 2.7 (2-4) g/dL Albumin/Globulin Ratio 1.4 (1-3) Lipase 21 (11.0-82.0) U/L Beta HCG, Quant < 0.60 mIU/mL 06/18/17 Range/Units 10:56 WBC (3.5-10.8) 10^3/ul RBC (4.0-5.4) 10^6/ul Hgb (12.0-16.0) g/dl Hct (35-47) % MCV (80-97) fL MCH (27-31) pg MCHC (31-36) g/dl RDW (10.5-15) % Plt Count (150-450) 10^3/ul MPV (7.4-10.4) um3 Neut % (Auto) (38-83) % Lymph % (Auto) (25-47) % [place] % (Auto) (0-7) % Eos % (Auto) (0-6) % Baso % (Auto) (0-2) % Absolute Neuts (auto) (1.5-7.7) 10^3/ul Absolute Lymphs (auto) (1.0-4.8) 10^3/ul Absolute Monos (auto) (0-0.8) 10^3/ul Absolute Eos (auto) (0-0.6) 10^3/ul Absolute Basos (auto) (0-0.2) 10^3/ul Absolute Nucleated RBC 10^3/ul Nucleated RBC % INR (Anticoag Therapy) (0.77-1.02) APTT (26.0-36.3) seconds Sodium (133-145) mmol/L Potassium (3.5-5.0) mmol/L Chloride (101-111) mmol/L Carbon Dioxide (22-32) mmol/L Anion Gap (2-11) mmol/L BUN (6-24) mg/dL Creatinine (0.51-0.95) mg/dL Est GFR ( Amer) (>60) Est GFR (Non-Af Amer) (>60) BUN/Creatinine Ratio (8-20) Glucose (70-100) mg/dL Lactic Acid 0.8 (0.5-2.0) mmol/L Calcium (8.6-10.3) mg/dL Total Bilirubin (0.2-1.0) mg/dL AST (13-39) U/L ALT (7-52) U/L Alkaline Phosphatase (34-104) U/L C-Reactive Protein (< 5.00) mg/L Total Protein (6.4-8.9) g/dL Albumin (3.2-5.2) g/dL Globulin (2-4) g/dL Albumin/Globulin Ratio (1-3) Lipase (11.0-82.0) U/L Beta HCG, Quant mIU/mL Result Diagrams: 06/18/17 10:56 06/18/17 10:56 Lab Statement: Any lab studies that have been ordered have been reviewed, and results considered in the medical decision making process. - CT CT Abd/Pelvis CT Interpretation: Positive (See Comments) - IMPRESSION: 1. MILD MUCOSAL THICKENING OF THE PROXIMAL COLON WHICH MAY SUGGEST COLITIS IN THE APPROPRIATE CLINICAL SETTING. 2. NORMAL APPENDIX. 3. FIBROID UTERUS. Dr. Gama has reviewed this report. CT Interpretation Completed By: Radiologist Abdominal Pain Fem Course/Dx - Course Course Of Treatment: The patient is a 31 year old female complaining of abdominal pain, diarrhea, and nausea. CT Abd/Pelvis reveals, per radiologist, mild mucosal thickening of the proximal colon, normal appendix, fibroid uterus. ED physician has reviewed this radiology report. Blood-work, stool sample, and UA obtained. In the ED course the patient was given IV fluids, IV Zofran, and IV Contrast, and PO Flagyl. Patient is diagnosed with C diff colitis. Patient will be discharged home with instruction to follow up with primary care physician in 3 days. The patient is agreeable with this plan. - Diagnoses Differential Diagnosis: Positive: Other - diarrhoea/abd pain/colitis Provider Diagnoses: C. difficile colitis Discharge - Sign-Out/Discharge Documenting (check all that apply): Discharge - discharged home - Discharge Plan Condition: Stable Disposition: HOME Prescriptions: Ondansetron TAB* [Zofran 4 MG Tab*] 4 mg PO Q6H PRN #20 tab MDD 3 PRN Reason: Vomiting Vancomycin CAP* 125 mg PO QID #40 cap Patient Education Materials: Colitis (ED) Referrals: Radha Serrano MD [Primary Care Provider] - Additional Instructions: Follow up with primary care physician in 3 days. - Billing Disposition and Condition Condition: STABLE Disposition: HOME The documentation as recorded by the Steve kauffman Elizabeth accurately reflects the service I personally performed and the decisions made by Natan kat Emmanuel.
--- NOTE | 2017-06-19 09:24 | PN ---
Progress Note - Progress Note Date of Service: 06/18/17 Note: Patient diagnosed with C. difficile colitis prior to discharge She was placed appropriately on vancomycin No more treatment is required at this time
== END 2017-06-18 16:08 | disposition home or self-care (01) ==
LOC: ED 09:41
DX: A04.72 Enterocolitis due to Clostridium difficile, not specified as recurrent (principal); D25.9 Leiomyoma of uterus, unspecified; R19.7 Diarrhea, unspecified; R11.0 Nausea; Z32.02 Encounter for pregnancy test, result negative; J45.909 Unspecified asthma, uncomplicated; F41.9 Anxiety disorder, unspecified; Z88.5 Allergy status to narcotic agent; Z88.8 Allergy status to other drugs, medicaments and biological substances
CPT/HCPCS: 36415; 74177; 80053; 82272; 83605; 83690; 84702; 85025; 85610; 85730; 86140; 87040; 87493; 96361; 96374; 99283; A9270-GY; J2405; Q9967